=== PATIENT | male | born 1965 | race Caucasian/White ===

== ENCOUNTER 2021-11-28 11:37 | Outpatient (CLI) | payer OTHER, SELFPAY ==
--- NOTE | 2021-11-28 | ECG_ITS ---
Measurements Intervals [place] Rate: 64 P: 6 [place]: 154 QRS: 31 QRSD: 100 T: 3 QT: 401 QTc: 416 Interpretive Statements SINUS RHYTHM WITHIN NORMAL LIMITS NO PREVIOUS ECG AVAILABLE FOR COMPARISON Electronically Signed On 11-28-2021 14:00:31 CDT by Torsten Bales M.D.
--- NOTE | ~2021-11-28 | XR_ITS ---
EXAMINATION: XR chest 2V DATE: 11/28/2021 12:58 INDICATION: Preoperative assessment TECHNIQUE: PA and lateral views of the chest are obtained. COMPARISON: None available FINDINGS: The lungs are free of acute opacities. No pleural effusion or pneumothorax. The cardiomedia stinal silhouette is normal. There is mild thoracic spondylosis. IMPRESSION: 1. No acute cardiopulmonary abnormality. Reviewed, dictated and finalized at location A.
== END 2021-11-28 11:38 | disposition home or self-care (01) ==
PROVIDERS: PCP Family Medicine
DX: Z01.818 Encounter for other preprocedural examination (principal)
CPT/HCPCS: 71046; 93005